=== PATIENT | female | born 1960 | race Caucasian/White ===

== ENCOUNTER 2016-03-09 09:32 | Emergency (ER) | payer OTHER ==
[~2016-03-09] VITALS: Wt 84.0 kg
[~2016-03-09 09:32] MED LIST: ATOR20TA17 PO; ESTR1TAB16 PO; FENO145T25 PO; HYDR-2059 PO; OLAN20TA
[2016-03-09] MEDS ORDERED: MINE3.5O30 RIGHT EYE (10:31)
--- NOTE | 2016-03-09 10:40 | ERD ---
ER Documentation Chief Complaint Date/Time DATE: 03/09/16 TIME: 10:38 Chief Complaint RIGHT EYE REDNESS, ITCHING, ONSET 1 DAY HPI This 55-year-old female complains of right eye redness starting today. She believes it started while coughing. Denies any visual changes or visual deficits or pain or discharge. She denies any additional symptoms. She denies contact lenses. ROS All systems reviewed and are negative except as per history of present illness. Medications Home Meds Active Scripts Mineral Oil/Petrolatum,White (ARTIFICIAL TEARS EYE OINT) 3.5 Gm Oint...g., 1 APPLIC RIGHT EYE QID Y for DRY EYES for 10 Days, #1 EA Prov:BRAD LINDO MD 03/09/16 Reported Medications Hydrocodone Bit-Acetaminophen* (Hydrocodone-APAP*) 1 Tab Tablet, 1 TAB PO HS 06/08/12 Atorvastatin (Lipitor) 20 Mg Tablet, 20 MG PO DAILY 07/03/11 Fenofibrate Nanocrystallized* (Tricor*) 145 Mg Tablet, 145 MG PO DAILY 07/03/11 Estrogen,Conj-Medroxyprogest Acet (Premphase) 0.625 ( 14 ) Tablet, 0.625 ( PO DAILY 07/03/11 Olanzapine* (Zyprexa*) 20 Mg Tablet 11/09/10 Allergies Allergies: Coded Allergies: rosuvastatin (Verified Allergy, Unknown, 06/27/13) PMhx/Soc History of Surgery: No Anesthesia Reaction: No Hx Neurological Disorder: No Hx Respiratory Disorders: No Hx Cardiac Disorders: Yes (high triglycerides) Hx Psychiatric Problems: Yes (Bipolar) Hx Miscellaneous Medical Probl: No Hx Alcohol Use: No Hx Substance Use: No Hx Tobacco Use: No Smoking Status: Never smoker Physical Exam Vitals Vital Signs Date Time Temp Pulse Resp B/P Pulse Ox O2 Delivery O2 Flow Rate FiO2 03/09/16 09:35 98.0 87 18 161/85 98 Physical Exam Const: [] Alert, [id number] per Head: Atraumatic Eyes: There is a simple conjunctival hemorrhage extending from 3:00 to 6:00 on the right eye. Eyes are PERRLA and anterior chambers normal. Extraocular movements intact. ENT: Normal External Ears, Nose and Mouth. Neck: Full range of motion..~ No meningismus. Resp: Clear to auscultation bilaterally Cardio: Regular rate and rhythm, no murmurs Abd: Soft, non tender, non distended. Normal bowel sounds Skin: No petechiae or rashes Back: No midline or flank tenderness Ext: No cyanosis, or edema Neur: Awake and alert Psych: Normal Mood and Affect Procedures/MDM This patient presents with what appears to be an uncomplicated subconjunctival hemorrhage without evidence to suggest ulcer, globe rupture, threats to vision. There is no signs or symptoms to suggest bacterial infection. She will treated with artificial tears, recommendation to see ophthalmology for follow- up and instructions to return for new or worsening symptoms . Symptoms not consistent with acute angle glaucoma, optic neuritis, retinal artery ischemia, additional emergencies. Departure Diagnosis: Primary Impression: Subconjunctival hemorrhage of right eye Condition: Stable Patient Instructions: Subconjunctival Hemorrhage Referrals: [facility] Hours: Mon - Fri 9:00 AM - 5:00 PM Additional Instructions: Recheck for new or worsening symptoms with fly frame tender. Lesion usually resolves by 2 weeks. BRAD LINDO MD Mar 09, 2016 10:39
== END 2016-03-09 10:41 | disposition home or self-care (01) ==
LOC: FTE 09:32
DX: H11.31 Conjunctival hemorrhage, right eye (principal)
CPT/HCPCS: 99283

== ENCOUNTER 2016-10-08 20:17 | Emergency (ER) | payer BC, OTHER ==
[~2016-10-08] VITALS: Ht 162.6 cm; Wt 83.5 kg
[~2016-10-08 20:17] MED LIST changes: +MINE3.5O30 RIGHT EYE; -OLAN20TA; +OLAN20TA3
[2016-10-08 20:30] VITALS: Ht 162.6 cm; Wt 83.5 kg
--- NOTE | 2016-10-08 22:07 | ERA ---
ER Documentation Chief Complaint Date/Time DATE: 10/08/16 TIME: 22:06 Chief Complaint n/v HPI The patient is a 56-year-old female, presenting to the ER because of nausea, vomiting of mostly mucus and intermittent dizziness for the last couple days. She concerned that she may have lithium toxicity. She was admitted about a week ago for lithium toxicity of 1.8. Her psychiatrist has decreased her lithium to 1200 mg at bedtime for the last 4 days. She has been taking lithium for many years. She denies fever, chills, syncope, near syncope, neck pain, chest pain, abdominal pain, dysuria, diarrhea. She does not smoke or drink does illicit drug Past medical history: Dyslipidemia, bipolar Past surgical history: None ROS All systems reviewed and are negative except as per history of present illness. Medications Home Meds Active Scripts Ondansetron (Ondansetron Odt) 4 Mg Tab.rapdis, 4 MG PO Q6H Y for NAUSEA AND/OR VOMITING, #10 TAB Prov:SABI ADRIAN MD 10/09/16 Mineral Oil/Petrolatum,White (ARTIFICIAL TEARS EYE OINT) 3.5 Gm Oint...g., 1 APPLIC RIGHT EYE QID Y for DRY EYES for 10 Days, #1 EA Prov:BRAD LINDO MD 03/09/16 Reported Medications Ibuprofen* (Advil*) 200 Mg Capsule, 400 MG PO Q6H Y for PAIN, CAP 10/08/16 Vmvsjv-Vkirjuat-Pucnsgj* (Creeileen DR* 24,000) 24,000 L-76,000-120,000 Unit Capsule., 1 CAP PO WITH MEALS, CAP 10/08/16 Gabapentin* (Gabapentin*) 300 Mg Capsule, 300 MG PO BID, #60 CAP 10/08/16 Trazodone Hcl* (Trazodone Hcl*) 50 Mg Tablet, 50 MG PO QHS, #30 TAB 10/08/16 [place] Carbonate* ([place] Carbonate*) 600 Mg Capsule, 1200 MG PO QHS, CAP 10/08/16 Atorvastatin (Lipitor) 20 Mg Tablet, 20 MG PO DAILY 07/03/11 Fenofibrate Nanocrystallized* (Tricor*) 145 Mg Tablet, 145 MG PO DAILY 07/03/11 Estrogen,Conj-Medroxyprogest Acet (Premphase) 0.625 ( 14 ) Tablet, 0.625 ( PO DAILY 07/03/11 Olanzapine* (Zyprexa*) 20 Mg Tablet 11/09/10 Discontinued Reported Medications Hydrocodone Bit-Acetaminophen* (Hydrocodone-APAP*) 1 Tab Tablet, 1 TAB PO HS 06/08/12 Allergies Allergies: Coded Allergies: olanzapine (Unverified Allergy, Mild, 10/08/16) rosuvastatin (Verified Allergy, Unknown, 06/27/13) PMhx/Soc History of Surgery: No Anesthesia Reaction: No Hx Neurological Disorder: No Hx Respiratory Disorders: No Hx Cardiac Disorders: No Hx Psychiatric Problems: No Hx Miscellaneous Medical Probl: No Hx Alcohol Use: No Hx Substance Use: No Hx Tobacco Use: No Physical Exam Vitals Vital Signs Date Time Temp Pulse Resp B/P Pulse Ox O2 Delivery O2 Flow Rate FiO2 10/08/16 20:30 97.9 86 20 167/86 96 Physical Exam Const: No acute distress. Head: Atraumatic. Eyes: Normal Conjunctiva. ENT: Normal External Ears, Nose and Mouth. Neck: Full range of motion. No meningismus. Resp: Clear to auscultation bilaterally. Cardio: Regular rate and rhythm. Abd: Soft, non distended, normal bowel sounds, non tender. Skin: No petechiae or rashes. Back: No midline or flank tenderness. Ext: No cyanosis, or edema. Neur: Awake and alert. No focal deficit Psych: Normal Mood and Affect. Result Diagram: 10/08/16225410/08/162254 Results 24 hrs Laboratory Tests Test 10/08/16 22:55 10/08/16 23:02 White Blood Count 8.910^3/ul Red Blood Count 4.0910^6/ul Hemoglobin 13.0g/dl Hematocrit 38.2% Mean Corpuscular Volume 93.4fl Mean Corpuscular Hemoglobin 31.8pg Mean Corpuscular Hemoglobin Concent 34.0g/dl Red Cell Distribution Width 12.0% Platelet Count 09409^3/UL Mean Platelet Volume 9.0fl Neutrophils % 63.8% Lymphocytes % 28.5% Monocytes % 5.9% Eosinophils % 1.0% Basophils % 0.6% Nucleated Red Blood Cells % 0.0/100WBC Neutrophils # 5.710^3/ul Lymphocytes # 2.510^3/ul Monocytes # 0.510^3/ul Eosinophils # 0.110^3/ul Basophils # 0.110^3/ul Nucleated Red Blood Cells # 0.010^3/ul Sodium Level 141mmol/L Potassium Level 4.0mmol/L Chloride Level 102mmol/L Carbon Dioxide Level 24mmol/L Anion Gap 19 Blood Urea Nitrogen 12mg/dl Creatinine 0.60mg/dl Glucose Level 108mg/dl Calcium Level 10.2mg/dl Total Bilirubin 0.1mg/dl Direct Bilirubin 0.00mg/dl Indirect Bilirubin 0.1mg/dl Aspartate Amino Transf (AST/SGOT) 20IU/L Alanine Aminotransferase (ALT/SGPT) 31IU/L Alkaline Phosphatase 63IU/L Total Protein 7.5g/dl Albumin 4.2g/dl Globulin 3.30g/dl Albumin/Globulin Ratio 1.27 Lipase 268U/L [place] Level 0.7mmol/L Bedside Urine pH (LAB) 6.0 Bedside Urine Protein (LAB) Negative Bedside Urine Glucose (UA) Negative Bedside Urine Ketones (LAB) Negative Bedside Urine Blood Trace-lysed Bedside Urine Nitrite (LAB) Negative Bedside Urine Leukocyte Esterase (L Negative Procedures/MDM MEDICAL MAKING DECISION: The patient is a 56-year-old female, presenting to the ER because of nausea vomiting and dizziness of unclear etiology. I do not suspect lithium toxicity. She has no abdominal pain and is stable for outpatient follow-up The differential diagnoses considered include but are not limited to cholelithiasis, cholecystitis, cystitis, pancreatitis, hepatitis, gastritis, peptic ulcer disease, gastric ulcer, appendicitis, diverticulitis, cholangitis, choledocholithiasis, partial small bowel obstruction. Departure Diagnosis: Primary Impression: Nausea & vomiting Condition: Good Additional Instructions: The patient's blood pressure was elevated (>120/80) but appears stable without evidence of hypertension emergency or urgency. The patient was counseled about the risks of hypertension and urged to pursue outpatient monitoring and therapy within a week with their primary care physician. She was discharged with Greyson GRAHAM I discussed the findings with the patient. I advised the patient to follow-up with the primary physician in about 1-2 days, sooner if needed and return if any concern. SABI ADRIAN MD Oct 08, 2016 22:07
[2016-10-08] MEDS ORDERED: LITH600C2 PO (22:50)
[2016-10-08] MEDS ORDERED: GABA300C16 PO (22:50)
[2016-10-08] MEDS ORDERED: TRAZ50TA18 PO (22:50)
[2016-10-08] MEDS ORDERED: LIPA1CAP6 PO (22:50)
[2016-10-08] MEDS ORDERED: IBUP200C11 PO (22:50)
[2016-10-08 22:57] LABS: URINE BLOOD (Dip) POC Trace-lysed (NEGATIVE)
[2016-10-08 23:22] LABS: BASOPHIL # 0.1 10^3/ul (0.0-0.1); BASOPHILS % 0.6 % (0.0-2.0); EOSINOPHILS # 0.1 10^3/ul (0.0-0.5); HEMATOCRIT 38.2 % (37.0-47.0); LYMPHOCYTES # 2.5 10^3/ul (0.8-2.9); LYMPHOCYTES % 28.5 % (15.0-51.0); MEAN CORPUSCULAR HEMOGLOBIN 31.8 pg (29.0-33.0); MEAN CORPUSCULAR VOLUME 93.4 fl (82.0-101.0); MONOCYTE # 0.5 10^3/ul (0.3-0.9); MONOCYTES % 5.9 % (0.0-11.0); NEUTROPHIL # 5.7 10^3/ul (1.6-7.5); NEUTROPHILS % 63.8 % (39.0-77.0); PLATELET COUNT 368 10^3/UL (140-415); RED BLOOD COUNT 4.09 10^6/ul (4.20-5.40); WHITE BLOOD COUNT 8.9 10^3/ul (4.8-10.8)
[2016-10-08 23:48] LABS: ALBUMIN 4.2 g/dl (3.3-4.9); ALBUMIN/GLOBULIN RATIO 1.27; BILIRUBIN,INDIRECT 0.1 mg/dl (0-1.1); BILIRUBIN,TOTAL 0.1 mg/dl (0.2-1.3); CALCIUM 10.2 mg/dl (8.4-10.2); CREATININE 0.6 mg/dl (0.44-1.00); TOTAL PROTEIN 7.5 g/dl (6.1-8.1)
[2016-10-09] MEDS ORDERED: ONDA4TAB14 PO (01:26)
[2016-10-09 01:50] VITALS: BP 158/77; PULSE 72; RESP 20; TEMP 97.9
== END 2016-10-09 01:51 | disposition home or self-care (01) ==
LOC: E/R 20:17
DX: R11.2 Nausea with vomiting, unspecified (principal); R42 Dizziness and giddiness
CPT/HCPCS: 36415; 80053; 80178; 81003; 83690; 85025; 99283

== ENCOUNTER 2016-10-23 13:41 | Emergency (ER) | payer BC, OTHER ==
[~2016-10-23] VITALS: Wt 82.0 kg
[~2016-10-23 13:41] MED LIST changes: +BIPOLAR MEDS; +CELEXA; +CITA-104 PO; +GABA300C16 PO; +IBUP200C11 PO; +LAMO5TB.2; +LIPA1CAP6 PO; +LIPITOR; +LITH600C2 PO; +ONDA4TAB14 PO; +TOPAMAX; +TRAZ50TA18 PO; +TRICOR
[2016-10-23 14:25] LABS: BASOPHILS % 0.2 % (0.0-2.0); EOSINOPHILS # 0.2 10^3/ul (0.0-0.5); EOSINOPHILS % 1.7 % (0.0-7.0); HEMOGLOBIN 11.6 g/dl (12.0-16.0); LYMPHOCYTES # 1.7 10^3/ul (0.8-2.9); LYMPHOCYTES % 19.7 % (15.0-51.0); MEAN CORPUSCULAR HEMOGLOBIN 32.3 pg (29.0-33.0); MEAN CORPUSCULAR HGB CONC 34.1 g/dl (32.0-37.0); MEAN CORPUSCULAR VOLUME 94.7 fl (82.0-101.0); MEAN PLATELET VOLUME 8.7 fl (7.4-10.4); MONOCYTE # 0.6 10^3/ul (0.3-0.9); MONOCYTES % 6.7 % (0.0-11.0); NEUTROPHILS % 71.2 % (39.0-77.0); PLATELET COUNT 409 10^3/UL (140-415); RED BLOOD COUNT 3.59 10^6/ul (4.20-5.40); RED CELL DISTRIBUTION WIDTH 11.6 % (11.5-14.5); WHITE BLOOD COUNT 8.8 10^3/ul (4.8-10.8)
[2016-10-23 14:33] LABS: ALBUMIN 3.8 g/dl (3.3-4.9); ALBUMIN/GLOBULIN RATIO 1.22; BILIRUBIN,INDIRECT 0.2 mg/dl (0-1.1); BILIRUBIN,TOTAL 0.2 mg/dl (0.2-1.3); CALCIUM 9.7 mg/dl (8.4-10.2); CREATININE 0.6 mg/dl (0.44-1.00); POTASSIUM 4.1 mmol/L (3.5-5.1); TOTAL PROTEIN 6.9 g/dl (6.1-8.1)
[2016-10-23] MEDS ORDERED: HYDR-842 PO (14:56)
--- NOTE | 2016-10-23 15:03 | ERD ---
ER Documentation Chief Complaint Date/Time DATE: 10/23/16 TIME: 14:59 Chief Complaint PT THINKS LITHIUM LEVEL IS HIGH, REPORTS DIZZINESS, NO N/V HPI 56 year old female bipolar disorder with psychotic features who is on lithium presents stating that last night she felt a little dizzy but it has resolved. She states that a few months ago she had lithium toxicity and she gets worried sometimes that she has high levels of lithium. She states she got it checked last Wednesday and it was normal. She states she has appointment with psychiatrist tomorrow. Denies nausea, vomiting, diarrhea, headache, dizziness at this time. She also states that sometimes she feels itchy ROS All systems reviewed and are negative except as per history of present illness. Medications Home Meds Active Scripts Hydroxyzine Hcl* (Atarax*) 25 Mg Tab, 25 MG PO Q6H Y for ITCHING, #20 TAB Prov:ARTIS MUÑOZ PA-C 10/23/16 Ondansetron (Ondansetron Odt) 4 Mg Tab.rapdis, 4 MG PO Q6H Y for NAUSEA AND/OR VOMITING, #10 TAB Prov:SABI ADRIAN MD 10/09/16 Mineral Oil/Petrolatum,White (ARTIFICIAL TEARS EYE OINT) 3.5 Gm Oint...g., 1 APPLIC RIGHT EYE QID Y for DRY EYES for 10 Days, #1 EA Prov:BRAD LINDO MD 03/09/16 Reported Medications Ibuprofen* (Advil*) 200 Mg Capsule, 400 MG PO Q6H Y for PAIN, CAP 10/08/16 Vfzict-Qfwrddby-Mqjfhjo* ([place]ne PARADA* 24,000) 24,000 L-76,000-120,000 Unit Capsule., 1 CAP PO WITH MEALS, CAP 10/08/16 Gabapentin* (Gabapentin*) 300 Mg Capsule, 300 MG PO BID, #60 CAP 10/08/16 Trazodone Hcl* (Trazodone Hcl*) 50 Mg Tablet, 50 MG PO QHS, #30 TAB 10/08/16 [place] Carbonate* ([place] Carbonate*) 600 Mg Capsule, 1200 MG PO QHS, CAP 10/08/16 Atorvastatin (Lipitor) 20 Mg Tablet, 20 MG PO DAILY 07/03/11 Fenofibrate Nanocrystallized* (Tricor*) 145 Mg Tablet, 145 MG PO DAILY 07/03/11 Estrogen,Conj-Medroxyprogest Acet (Premphase) 0.625 ( 14 ) Tablet, 0.625 ( PO DAILY 07/03/11 Olanzapine* (Zyprexa*) 20 Mg Tablet 11/09/10 Allergies Allergies: Coded Allergies: olanzapine (Unverified Allergy, Mild, 10/08/16) rosuvastatin (Verified Allergy, Unknown, 06/27/13) PMhx/Soc History of Surgery: No Anesthesia Reaction: No Hx Neurological Disorder: No Hx Respiratory Disorders: No Hx Cardiac Disorders: No Hx Psychiatric Problems: No Hx Miscellaneous Medical Probl: Yes (Bipolar disorder) Hx Alcohol Use: No Hx Substance Use: No Hx Tobacco Use: No Smoking Status: Never smoker Physical Exam Vitals Vital Signs Date Time Temp Pulse Resp B/P Pulse Ox O2 Delivery O2 Flow Rate FiO2 10/23/16 13:44 97.2 99 18 145/78 98 Physical Exam Const: WD/WN Head: Atraumatic Eyes: Normal Conjunctiva ENT: Normal External Ears, Nose and Mouth. Neck: Full range of motion..~ No meningismus. Resp: Clear to auscultation bilaterally Cardio: Regular rate and rhythm, no murmurs Abd: Soft, non tender, non distended. Normal bowel sounds Skin: No petechiae or rashes Back: No midline or flank tenderness Ext: No cyanosis, or edema Neur: Awake and alert Psych: Normal Mood and Affect Result Diagram: 10/23/16 1410 10/23/16 1410 Results 24 hrs Laboratory Tests Test 10/23/16 14:10 White Blood Count 8.810^3/ul Red Blood Count 3.5910^6/ul Hemoglobin 11.6g/dl Hematocrit 34.0% Mean Corpuscular Volume 94.7fl Mean Corpuscular Hemoglobin 32.3pg Mean Corpuscular Hemoglobin Concent 34.1g/dl Red Cell Distribution Width 11.6% Platelet Count 46614^3/UL Mean Platelet Volume 8.7fl Neutrophils % 71.2% Lymphocytes % 19.7% Monocytes % 6.7% Eosinophils % 1.7% Basophils % 0.2% Nucleated Red Blood Cells % 0.0/100WBC Neutrophils # (Manual) 610^3/ul Lymphocytes # 1.710^3/ul Monocytes # 0.610^3/ul Eosinophils # 0.210^3/ul Basophils # 0.010^3/ul Nucleated Red Blood Cells # 0.010^3/ul Sodium Level 140mmol/L Potassium Level 4.1mmol/L Chloride Level 101mmol/L Carbon Dioxide Level 26mmol/L Anion Gap 17 Blood Urea Nitrogen 11mg/dl Creatinine 0.60mg/dl Glucose Level 124mg/dl Calcium Level 9.7mg/dl Total Bilirubin 0.2mg/dl Direct Bilirubin 0.00mg/dl Indirect Bilirubin 0.2mg/dl Aspartate Amino Transf (AST/SGOT) 19IU/L Alanine Aminotransferase (ALT/SGPT) 27IU/L Alkaline Phosphatase 58IU/L Total Protein 6.9g/dl Albumin 3.8g/dl Globulin 3.10g/dl Albumin/Globulin Ratio 1.22 Lipase 164U/L Procedures/MDM 56 year old female bipolar disorder with psychotic features who is on lithium presents stating that last night she felt a little dizzy but it has resolved. She states that a few months ago she had lithium toxicity and she gets worried sometimes that she has high levels of lithium. I have reviewed patient's chart and she was seen a few days ago, lithium was within normal limits at 1 I do not believe she has lithium toxicity. Patient appears well, no symptoms. CBC and CMP unremarkable. [place] level was sent out due to machine malfunctions in the lab Patient stable to be discharged to home. Departure Diagnosis: Primary Impression: Encounter for laboratory test Condition: Stable Patient Instructions: [place] Referrals: ROYCE DHALIWAL (PCP) Additional Instructions: FOLLOW UP WITH YOUR PRIMARY CARE PHYSICIAN TOMORROW.Return to this facility if you are not improving as expected. Take all medicines as directed. Return to this facility if you are not improving as expected. You have been given a medicine which may cause drowsiness.DO NOT DRIVE OR OPERATE DANGEROUS MACHINERY while taking this medicine! ARTIS MUÑOZ PA-C Oct 23, 2016 15:03
== END 2016-10-23 15:44 | disposition home or self-care (01) ==
LOC: FTE 13:41
DX: R42 Dizziness and giddiness (principal)
CPT/HCPCS: 80053; 83690; 85025; 99283

== ENCOUNTER 2017-04-19 14:24 | Emergency (ER) | END 2017-04-19 15:26 | disposition left against medical advice (07) ==

== ENCOUNTER 2017-08-21 21:19 | Emergency (ER) | END 2017-08-22 01:09 | disposition home or self-care (01) ==

== ENCOUNTER 2017-11-15 07:03 | Day surgery (SDC) | END 2017-11-15 11:54 | disposition home or self-care (01) ==